=== PATIENT | male | born 1945 | race Caucasian/White ===

== ENCOUNTER 2019-07-05 07:54 | Day surgery (SDC) | payer MEDICARE, OTHER, SELFPAY ==
[2019-07-05] MEDS: PROPARACAINE 0.5% OPHTH SOL 2 DROPS EYE-OP (08:49)
[2019-07-05] MEDS: CATARACT EYE COMPOUND (10 DROPS/SYRINGE) 3 DROPS EYE-OP (08:55)
[2019-07-05 08:56] VITALS: BP 145/90; PULSE 64; RESP 16; TEMP 36.7; O2SAT 99; BMI 27.3
--- NOTE | 2019-07-05 09:32 | PM.PREOP ---
Pre-operative Note Interval Note History & Physical reviewed/Exam performed by Physician: No Changes to H&P: No
--- NOTE | 2019-07-05 09:32 | PM.OP.1 ---
Operative Date/Time/Diagnoses Pre-op diagnosis: Nuclear cataract right eye Procedure & Clinicians Procedure: Cataract Surgery Same procedure as scheduled: Yes Surgeon: Luis Cortez Anesthesia Type: MAC +/- and Sedation Operative Notes Procedure in detail: Patient brought to the operating suite. Tetracaine drops placed in the right eye. Patient was prepped and draped in sterile manner. Wire lid speculum was placed in the eye. Betadine drops were placed on the eye. This was irrigated. Lidocaine jelly was placed on the eye. A paracentesis port was created with a side-port blade. 0.1 mL 1% preservative free lidocaine was injected into the anterior chamber. The anterior chamber was deepened with viscoelastic. 2.6 mm keratome was used to create a temporal clear corneal incision. Cystotome and Utrata forceps were used to create continuous tear capsulorrhexis. Balanced salt solution was used to hydro dissect the nucleus. The phacoemulsification handpiece was inserted and the nucleus was removed using the stop and chop technique. The irrigation aspiration handpiece was inserted and the remaining cortex was removed. Anterior chamber was deepened with viscoelastic. An Parker ZCB00 intraocular lens with a power of 20.5 was injected into the capsular bag. Irrigation aspiration handpiece was inserted and the remaining viscoelastic was removed. Incision was hydrated with balanced salt solution and found to be leak free with pressure with Weck-Anika sponges. 0.1 mL Vigamox injected anterior chamber. 0.3 mL Kenalog 10 mg was injected subconjunctivally. Lid speculum was removed. The patient left the operating room in excellent condition. Complications: none Post-operative Condition: stable Disposition: same day surgery
--- NOTE | 2019-07-05 09:47 | SUR.OPER ---
Supine on eye stretcher, head on extension cradle secured with tape. Arms tucked at sides with blanket. Pillow under knees.
[2019-07-05] MEDS: PHENYLEPHRINE/LIDOCAINE VIAL (OR) 0.2 ML EYE-OP (09:49)
[2019-07-05] MEDS: TRIAMCINOLONE 50 MG/5 ML VIAL INJ (09:49)
[2019-07-05] MEDS: CHONDROIDTIN/SOD HYALURONATE 1.05 ML SYRINGE INTRAOCULA (09:50)
[2019-07-05] MEDS: BALANCED SALT IRRIG SOLN NO.2 500 ML, EPINEPHrine 1 MG IRR (09:50)
[2019-07-05] MEDS: TETRACAINE 0.5% OPHTH DROPS 4 ML 2 DROPS EYE-OP (09:50)
[2019-07-05] MEDS: LIDOCAINE JELLY 2% 5 ML 1 APPLIC TOP (09:50)
[2019-07-05] MEDS: MOXIFLOXACIN INJ 5 MG/ML VIAL EYE-OP (09:51)
[2019-07-05 10:05] VITALS: BP 118/79; PULSE 62; RESP 16; TEMP 36.6; O2SAT 99
== END 2019-07-05 10:08 | disposition home or self-care (01) ==
LOC: OR 07:57
PROVIDERS: PCP Family Medicine; Visit Provider Ophthalmology
PROC: (CPT 66984; principal; 2019-07-05 09:45)
DX: H25.11 Age-related nuclear cataract, right eye (principal); I10 Essential (primary) hypertension
CPT/HCPCS: 66984; J0171; J2250; J3301

== ENCOUNTER 2019-07-26 08:20 | Day surgery (SDC) | payer MEDICARE, OTHER, SELFPAY ==
[2019-07-26] MEDS: PROPARACAINE 0.5% OPHTH SOL 2 DROPS EYE-OP (09:18)
[2019-07-26 09:23] VITALS: BP 141/85; PULSE 63; RESP 14; TEMP 36.6; O2SAT 97; BMI 27.3
[2019-07-26] MEDS: CATARACT EYE COMPOUND (10 DROPS/SYRINGE) 3 DROPS EYE-OP (09:33)
--- NOTE | 2019-07-26 09:50 | PM.PREOP ---
Pre-operative Note Interval Note History & Physical reviewed/Exam performed by Physician: No Changes to H&P: No
--- NOTE | 2019-07-26 09:50 | PM.OP.1 ---
Operative Date/Time/Diagnoses Pre-op diagnosis: Nuclear Cataract Left eye Post-op diagnosis: same Procedure & Clinicians Surgeon: Luis Cortez Anesthesia Type: MAC +/- and Sedation Operative Notes Procedure in detail: Patient brought to the operating suite. Tetracaine drops placed in the left eye. Patient was prepped and draped in sterile manner. Wire lid speculum was placed in the eye. Betadine drops were placed on the eye. This was irrigated. Lidocaine jelly was placed on the eye. A paracentesis port was created with a side-port blade. 0.1 mL 1% preservative free lidocaine was injected into the anterior chamber. The anterior chamber was deepened with viscoelastic. 2.6 mm keratome was used to create a temporal clear corneal incision. Cystotome and Utrata forceps were used to create continuous tear capsulorrhexis. Balanced salt solution was used to hydro dissect the nucleus. The phacoemulsification handpiece was inserted and the nucleus was removed using the stop and chop technique. The irrigation aspiration handpiece was inserted and the remaining cortex was removed. Anterior chamber was deepened with viscoelastic. An Parker ZCB00 intraocular lens with a power of 21.0 was injected into the capsular bag. Irrigation aspiration handpiece was inserted and the remaining viscoelastic was removed. Incision was hydrated with balanced salt solution and found to be leak free with pressure with Weck-Anika sponges. 0.1 mL Vigamox injected anterior chamber. 0.3 mL Kenalog 10 mg was injected subconjunctivally. Lid speculum was removed. The patient left the operating room in excellent condition. Complications: none Post-operative Condition: stable Disposition: same day surgery
--- NOTE | 2019-07-26 10:04 | SUR.OPER ---
Supine on eye stretcher, head on extension cradle secured with tape. Arms tucked at sides with blanket. Pillow under knees.
[2019-07-26] MEDS: MOXIFLOXACIN INJ 5 MG/ML VIAL EYE-OP (10:05)
[2019-07-26] MEDS: PHENYLEPHRINE/LIDOCAINE VIAL (OR) 0.2 ML EYE-OP (10:05)
[2019-07-26] MEDS: CHONDROIDTIN/SOD HYALURONATE 1.05 ML SYRINGE INTRAOCULA (10:06)
[2019-07-26] MEDS: LIDOCAINE JELLY 2% 5 ML 1 APPLIC TOP (10:06)
[2019-07-26] MEDS: TRIAMCINOLONE 50 MG/5 ML VIAL INJ (10:06)
[2019-07-26] MEDS: TETRACAINE 0.5% OPHTH DROPS 4 ML 2 DROPS EYE-OP (10:06)
[2019-07-26] MEDS: BALANCED SALT IRRIG SOLN NO.2 500 ML, EPINEPHrine 1 MG IRR (10:07)
[2019-07-26 10:18] VITALS: BP 127/81; PULSE 61; RESP 15; TEMP 36.2; O2SAT 97
== END 2019-07-26 10:32 | disposition home or self-care (01) ==
PROVIDERS: PCP Family Medicine; Visit Provider Ophthalmology
PROC: (CPT 66984; principal; 2019-07-26 10:15)
DX: H25.12 Age-related nuclear cataract, left eye (principal); I10 Essential (primary) hypertension
CPT/HCPCS: 66984; J0171; J2250; J3301

== ENCOUNTER → 2020-06-24 09:52 | Outpatient (CLI) | payer MEDICARE, OTHER, SELFPAY ==
[2020-06-25 15:02] LABS: COVID19 Sendout Not Detected (Not Detect)
== END ==
PROVIDERS: PCP Family Medicine; Visit Provider Physician Assistant
DX: Z01.812 Encounter for preprocedural laboratory examination (principal)
CPT/HCPCS: 87635

== ENCOUNTER 2020-06-27 12:41 | Day surgery (SDC) | payer MEDICARE, OTHER, SELFPAY ==
[2020-06-27] VITALS (8 sets, daily range): BP systolic 91–145; BP diastolic 57–90; PULSE 58–69; RESP 11–17; TEMP 36.4–36.8; O2SAT 98–99; BMI 26.2
--- NOTE | 2020-06-27 | PATH_ITS ---
[facility] Accession Number: [id number] . 01 Material submitted: . PART A: stomach - GASTRIC BODY POLYP PART B: esophagus, E-G Junction - GE JUNCTION . 01 Clinical history: . B: HISTORY OF PAULA'S . 02 Diagnosis: A. Gastric Body Polyp: Polypoid fragment of gastric body type mucosa and submucosa with a rare, dilated fundic gland; consistent with fundic gland polyp, in the appropriate clinical and imaging setting. Negative for intestinal metaplasia. Negative for dysplasia or malignancy. . B. GE Junction: Squamocolumnar junctional mucosa with no diagnostic abnormality. Negative for intestinal metaplasia. Negative for dysplasia and malignancy. [facility] 07/02/2020 1251 Local . 02 Electronically signed: . Cary Edwards MD, Pathologist NPI- [id number] . 01 Gross description: . A. Specimen A is received in formalin, labeled gastric polyp body and consists of a 0.2 x 0.2 x 0.2 cm hodges fragment of soft tissue, which is entirely submitted in cassette A1. B. Specimen B is received in formalin, labeled GE junction biopsy and consists of a 0.2 x 0.2 x 0.2 cm hodges-white fragment of soft tissue, which is entirely submitted in cassette B1. ([id number]) /[facility] 06/28/2020 1735 Local . 02 Pathologist provided ICD-10: K31.7, R10.13 . 02 CPT . 590154, [id number] Performed at: 01 [facility] [address] [place] [address] [id number] MD Cristobal Lucero MD Phone: [phone] Performed at: 02 [facility] [address] [place] [address] [id number] MD Pennie Adams MD Phone: [phone]
[2020-06-27] MEDS: SODIUM CHLORIDE 0.9% 1,000 ML 200 ML IV (13:30)
--- NOTE | 2020-06-27 13:48 | PM.HP.1 ---
History of Present Illness History of Present Illness Chief complaint: [facility] [place] Patient History Family & Social History Social History: household members spouse Tobacco & Substance use: Tobacco type cigars Smoking Status Current some day smoker alcohol intake current alcohol intake frequency holiday/special occasion Substance Use Type does not use Meds Home Medications and Allergies Home Medications Medication Instructions Recorded Confirmed Type finasteride 5 mg PO DAILY 07/05/19 06/27/20 History hydrocodone-acetaminophen 1 tab PO Q4-6H PRN 07/05/19 06/27/20 History lisinopril 10 mg PO DAILY 07/05/19 06/27/20 History pantoprazole 20 mg PO DAILY 07/05/19 06/27/20 History pravastatin 20 mg PO BEDTIME 07/05/19 06/27/20 History tamsulosin 0.4 mg PO DAILY 07/05/19 06/27/20 History zolpidem 5 mg PO BEDTIME 07/05/19 06/27/20 History Allergies Allergy/AdvReac Type Severity Reaction Status Date / Time amoxicillin Allergy Intermediate Hives Verified 06/27/20 13:07 Penicillins AdvReac Hives Verified 06/27/20 13:07 Review of Systems Review of Systems ROS: Yes All systems reviewed with the patient and are negative except as otherwise documented Exam Vital Signs (past 8 hours): - 06/27/20 13:10 Temperature 98.2 F Pulse Rate 69 Respiratory Rate 15 Blood Pressure 145/84 H Pulse Oximetry 99 Oxygen Delivery Method Room Air Narrative Exam Narrative: Awake alert and oriented x3, pupils equal round reactive to light, oropharynx clear, heart regular rate and rhythm, lungs clear to auscultation bilaterally, abdomen nontender and nondistended, extremities without edema, no gross neurologic deficits noted Assessment & Plan Assessment & Plan narrative: GERD, Smith's esophagus, epigastric pain, change in bowel habits, history of chronic narcotic use for EGD and colonoscopy with monitored anesthesia care COVID-19 COVID-19 status: Negative
--- NOTE | 2020-06-27 14:00 | PM.OP.ENDO ---
Operative Date/Time/Diagnoses Date of procedure: 06/27/20 Procedure & Clinicians Study performed: EGD with biopsy Monitored anesthesia care was administered by the anesthesiologist. The following parameters were monitored: Oxygen saturation, heart rate, blood pressure, and response to care. Same procedure as scheduled: Yes Indications: History of Smith's esophagus, GERD, abdominal pain Procedure Notes Procedure in detail: Prior to the procedure, history and physical was performed, and patient medications and allergies were reviewed. Preprocedure nursing history and assessment was reviewed. Patient identification and proposed procedure were verified by the physician and nurse in the procedure room. The physical status of the patient was reassessed after the procedure. After informed consent was obtained including risks, benefits, and alternatives, the scope was passed under direct vision. Throughout the procedure, the patient's blood pressure, pulse, and oxygen saturations were monitored continuously. The upper endoscope was introduced through the mouth and advanced to the 2nd portion of the duodenum. Retroflexion was performed in the stomach. The patient tolerated the procedure well. The examined esophagus was normal appearing. The Z-line was minimally irregular and was located at 37 cm from the incisors. Biopsies were taken for evaluation of possible Smith's esophagus. In the anterior portion of the gastric body, a 7 mm pedunculated polyp was noted and was biopsied The stomach was otherwise normal appearing The 1st and 2nd portions of the duodenum were normal appearing Impression: Slightly irregular Z-line. Biopsied 7 mm gastric body polyp. Biopsied Normal appearing duodenum Complications: other (EBL minimal. No complications) Post-procedure Plan for aftercare: Follow-up pathology results Follow anti-reflux diet and lifestyle Proceed with colonoscopy today
--- NOTE | 2020-06-27 14:22 | PM.OP.ENDO ---
Operative Date/Time/Diagnoses Date of procedure: 06/27/20 Procedure & Clinicians Study performed: Colonoscopy Monitored anesthesia care was administered by the anesthesiologist. The following parameters were monitored: Oxygen saturation, heart rate, blood pressure, and response to care. Same procedure as scheduled: Yes Indications: Change in bowel habits, abdominal pain. Personal history of sessile serrated adenoma. Last colonoscopy was done in 2017. Procedure Notes Procedure in detail: Prior to the procedure, history and physical was performed, and patient medications and allergies were reviewed. Preprocedure nursing history and assessment was reviewed. Patient identification and proposed procedure were verified by the physician and nurse in the procedure room. The physical status of the patient was reassessed after the procedure. After informed consent was obtained including risks, benefits, and alternatives, the scope was passed under direct vision. Throughout the procedure, the patient's blood pressure, pulse, and oxygen saturations were monitored continuously. The colonoscope was introduced through the anus and advanced to the cecum as identified by the appendiceal orifice and ileocecal valve. The patient tolerated the procedure well. Bowel prep was deemed adequate to detect polyps greater than 5 mm. Digital rectal and perianal examinations were unremarkable. Retroflexion in the rectum revealed grade 2 internal hemorrhoids. Multiple medium mouthed diverticula noted in the sigmoid colon The colon was otherwise normal appearing Normal appearing terminal ileum Impression: Internal hemorrhoids Sigmoid colon diverticulosis Normal terminal ileum No specimens taken Complications: other (EBL 0. No complications) Post-procedure Plan for aftercare: Repeat colonoscopy in 5 years for screening purposes Resume home medications High fiber diet Follow-up in GI clinic as previously recommended for at the next available appointment Patient has a contact number available for emergencies. The signs and symptoms of potential delayed complications were discussed with the patient. Return to normal activities tomorrow. Written discharge instructions were provided to the patient. Discharge home with escort
--- NOTE | 2020-06-27 15:25 | SUR.PHASEII ---
1520-Pt dcd via [facility] in stable condition with all his belongings. No c/o and all dc instructions given to pt and pt verbalizes understanding.
== END 2020-06-27 15:20 | disposition home or self-care (01) ==
PROVIDERS: PCP Family Medicine; Referring Provider Internal Medicine; Visit Provider Internal Medicine
PROC: 0DJ08ZZ Inspection of Upper Intestinal Tract, Via Natural or Artificial Opening Endoscopic (ICD-10-PCS; CPT 43235; principal; 2020-06-27 15:00)
PROC: 0DJD8ZZ Inspection of Lower Intestinal Tract, Via Natural or Artificial Opening Endoscopic (ICD-10-PCS; CPT 45378; 2020-06-27 15:00)
DX: K31.7 Polyp of stomach and duodenum (principal); K22.70 Barrett's esophagus without dysplasia; K57.30 Diverticulosis of large intestine without perforation or abscess without bleeding; K64.1 Second degree hemorrhoids; K21.9 Gastro-esophageal reflux disease without esophagitis; F17.200 Nicotine dependence, unspecified, uncomplicated; Z86.010 Personal history of colon polyps
CPT/HCPCS: 43239; 45378

== ENCOUNTER → 2023-04-25 10:31 | Outpatient (CLI) | payer MEDICARE, OTHER, SELFPAY ==
--- NOTE | 2023-04-25 | DI.MRI.S_ITS ---
PROCEDURE: MR SHOULDER LT WO CON INDICATIONS: Rotator cuff syndrome left shoulder TECHNIQUE: Noncontrast oblique coronal T2 fast spin echo with fat saturation, oblique sagittal T1 spin echo and T2 fast spin echo with fat saturation, axial T1 spin echo and T2 fast spin echo with fat saturation through the shoulder. COMPARISON: Superimposed low-grade bursal surface tearing of the mid and posterior supraspinatus tendon as well as the mid and anterior infraspinatus tendon at the humeral insertion site extending to the musculotendinous junction. Subscapularis and teres minor tendons are intact. No rotator cuff atrophy. [facility], MR, SHOULDER WITHOUT CONTRAST, 04/13/2013, 13:02. [facility], CR, XR SHOULDER 2+ VIEWS LEFT, 04/16/2023, 10:50. FINDINGS: Image quality: Excellent. Rotator cuff: There is moderate T2 signal elevation diffusely throughout the supraspinatus and infraspinatus tendons at the humeral insertion sites extending to the musculotendinous junction, indicating tendinopathy. There is Bones and bursae: No bone marrow contusions or fractures. Moderate glenohumeral and acromioclavicular joint degeneration. The acromion demonstrates conventional anatomy, without an os acromiale. No pathologic subacromial-subdeltoid or subcoracoid bursal fluid is present. Capsule and soft tissues: Labrum is grossly intact. The long head of the biceps tendon demonstrates normal location and morphology. The rotator interval appears normal, without fibrosis. The coracohumeral ligament is normal in thickness. IMPRESSION: 1. Supraspinatus and infraspinatus tendinopathy with superimposed low-grade bursal surface tears. 2. Acromioclavicular and glenohumeral joint osteoarthritis. Dictated by: Lesli Cavazos M.D. on 04/27/2023 at 11:28 Approved by: Lesli Cavazos M.D. on 04/27/2023 at 11:31
== END ==
PROVIDERS: PCP Family Medicine; Referring Provider Orthopaedic Surgery; Visit Provider Orthopaedic Surgery
DX: M75.112 Incomplete rotator cuff tear or rupture of left shoulder, not specified as traumatic (principal); M19.012 Primary osteoarthritis, left shoulder
CPT/HCPCS: 73221